=== PATIENT | male | born 1980 | race Two or more races ===

== ENCOUNTER 2024-04-13 09:21 | Emergency (ER) | payer MEDICAID, SELFPAY ==
[2024-04-13 09:25] VITALS: PULSE 71; RESP 18; O2SAT 99
[2024-04-13 09:30] VITALS: BP 113/77; PULSE 91; RESP 18; TEMP 36.7; O2SAT 98
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
[2024-04-13 09:31] VITALS: BMI 30.7
[2024-04-13] MEDS: KETOROLAC INJ 60 MG/2 ML VIAL 30 MG IM (10:07)
== END 2024-04-13 10:40 | disposition home or self-care (01) ==
LOC: SERX 10:09
PROVIDERS: Emergency Provider Emergency Medicine
DX: M54.6 Pain in thoracic spine (principal)
CPT/HCPCS: 96372; 99283; J1885